=== PATIENT | male | born 1980 | race Caucasian/White ===

== ENCOUNTER 2022-07-13 06:53 | Day surgery (SDC) | payer BC ==
[2022-07-11 15:03] VITALS: BMI 39.0
--- NOTE | 2022-07-13 07:09 | P.GSHP ---
History of Present Illness H&P Date: 07/13/22 CHIEF COMPLAINT: Family history colon cancer HISTORY OF PRESENT ILLNESS: The patient is a 41-year-old male who presents for colon screen for family history of colon cancer. Lower endoscopy was offered for further evaluation and management. PAST MEDICAL HISTORY: Please see list. PAST SURGICAL HISTORY: Please see list. MEDICATIONS: Please see list. ALLERGIES: Please see list. SOCIAL HISTORY: No illicit drug use FAMILY HISTORY: No reports of Crohn disease or ulcerative colitis. REVIEW OF ORGAN SYSTEMS: CONSTITUTIONAL: No reports of fevers or chills. PHYSICAL EXAM: VITAL SIGNS: Stable GENERAL: Well-developed pleasant in no acute distress. HEENT: No scleral icterus. Extraocular movements grossly intact. Moist buccal mucosa. NECK: Supple without lymphadenopathy. CHEST: Unlabored respirations. Equal bilateral excursions. CARDIOVASCULAR: Regular rate and rhythm. Distal 2+ pulses. ABDOMEN: Soft, nontender, nondistended. MUSCULOSKELETAL: No clubbing, cyanosis, or edema. ASSESSMENT: 1. Colon screen. PLAN: 1. Recommend proceeding with a lower endoscopy Past Medical History Past Medical History: Hypertension History of Any Multi-Drug Resistant Organisms: None Reported Additional Past Surgical History / Comment(s): [place] teeth. Past Anesthesia/Blood Transfusion Reactions: No Reported Reaction Past Psychological History: No Psychological Hx Reported Smoking Status: Never smoker Past Alcohol Use History: Rare Past Drug Use History: None Reported - Past Family History Mother Family Medical History: Cancer Additional Family Medical History / Comment(s): Colon cancer. Medications and Allergies Home Medications Medication Instructions Recorded Confirmed Type Losartan Potassium 50 mg PO HS 07/11/22 07/11/22 History Allergies Allergy/AdvReac Type Severity Reaction Status Date / Time No Known Allergies Allergy Verified 07/11/22 14:54
[2022-07-13 07:19] VITALS: TEMP 97.1
[2022-07-13] MEDS ORDERED: LACTATED RINGERS 1,000 ML IV ONE (07:25)
[2022-07-13] MEDS ORDERED: LIDOCAINE 2% INJ 20 MG/ML (2 ML VIAL) ONE (07:43)
[2022-07-13] MEDS ORDERED: PROPOFOL 10 MG/ML 20 ML VIAL IV ONE (07:43)
[2022-07-13] MEDS ORDERED: LACTATED RINGERS 1,000 ML IV SCH (07:57)
[2022-07-13] MEDS ORDERED: LIDOCAINE 1% (10MG/ML) FOR IV START INTRADERMA PRN (07:57)
[2022-07-13 08:38] VITALS: BP 117/62; PULSE 78; RESP 18
--- NOTE | 2022-07-13 08:44 | P.PCN ---
Date of Procedure: 07/13/22 Description of Procedure: PREOPERATIVE DIAGNOSIS: Family history malignant colon polyps, mother Colonoscopy screening, high risk POSTOPERATIVE DIAGNOSIS: Tubular adenoma transverse colon Sigmoid diverticulosis Internal hemorrhoids, grade 2 OPERATION: Colonoscopy to the ileocecal valve and appendiceal orifice, cecum Colonoscopy with hot snare polypectomy SURGEON: Suly Toussaint MD. ANESTHESIA: MAC. INDICATIONS: The patient is an 41-year-old male who presents for his first screening with family history of malignant colon polyps. Benefits and risks were described and informed consent was obtained. DESCRIPTION OF PROCEDURE: The patient had undergone Sutab prep. The patient had been brought into the operating room and laid in the left lateral decubitus position. After adequate intravenous sedation, the rectum was examined with 2% lidocaine jelly. The prostate was unremarkable. External hemorrhoids were encountered. The rectal tone was within normal limits. No lesions were palpated in the rectal vault. An Olympus colonoscope was advanced until the cecum, ileocecal valve and append iceal orifice were clearly viewed. The prep was excellent. Sigmoid diverticulosis, few was encountered. Colonic polyps were found and removed. No evidence of focal colitis was found. Retroflexion of the scope demonstrated grade 2 internal hemorrhoids without active bleeding or inflammation. The colon was desufflated. The patient had tolerated the procedure well. Withdrawal time was over 6 minutes. FINDINGS: Aronchick preparation quality scale 1 (1-5) Internal hemorrhoids, grade 2 External hemorrhoids, grade 2. No arteriovenous malformations. Sigmoid diverticulosis, few Removal of 1 polyps: - Snare polypectomy at mid transverse colon, 8 mm adenoma No focal colitis. RECOMMENDATIONS: Repeat colonoscopy in 3 years2025 Plan - Discharge Summary Discharge Rx Participant: No New Discharge Prescriptions: Continue Losartan Potassium 50 mg PO HS Discharge Medication List Losartan Potassium 50 mg PO HS 07/11/22 [History] Follow up Appointment(s)/Referral(s): Suly Toussaint MD [STAFF PHYSICIAN] - As Needed Patient Instructions/Handouts: *Surgery [facility] - (Anesthesia) Discharge Instructions Outpatient Surgery, Diverticulosis (GEN), Colorectal Polyps (GEN), Diverticulosis Diet (GEN), Colonoscopy (DC) Activity/Diet/Wound Care/Special Instructions: Repeat colonoscopy in 3 years2025 Discharge Disposition: HOME SELF-CARE
== END 2022-07-13 09:31 | disposition home or self-care (01) ==
LOC: ORWHC2ENDO 06:53
PROVIDERS: ATTEND Surgery Plastic and Reconstructive Surgery
DX: Z12.11 Encounter for screening for malignant neoplasm of colon (principal); D12.3 Benign neoplasm of transverse colon; K57.30 Diverticulosis of large intestine without perforation or abscess without bleeding; K64.1 Second degree hemorrhoids; K64.4 Residual hemorrhoidal skin tags; I10 Essential (primary) hypertension; Z80.0 Family history of malignant neoplasm of digestive organs; Z86.59 Personal history of other mental and behavioral disorders
CPT/HCPCS: 88305; 45385; J2704; J2001